=== PATIENT | female | born 1970 | race Caucasian/White ===

== ENCOUNTER 2022-12-24 20:23 | Emergency (ER) | payer OTHER, SELFPAY ==
--- NOTE | ~2022-12-24 | XR_ITS ---
EXAMINATION: XR WRIST, LEFT CLINICAL INFORMATION: Trauma COMPARISON: None available. TECHNIQUE: PA, lateral, and oblique views of the left wrist. FINDINGS: There is comminuted fracture distal radius with dorsal displacement of the wrist. Also visualized is a comminuted fracture distal ulna. There is moderate soft tissue swelling. No additional fracture seen. XR/XR wrist LT min 3V IMPRESSION: Comminuted Colles fracture distal radius. Comminuted fracture distal ulna without displacement. Moderate wrist soft tissue swelling.
[2022-12-24 20:53] VITALS: BP 143/94; PULSE 82; RESP 16; TEMP 37.5; O2SAT 98; BMI 22.6
--- NOTE | 2022-12-24 20:54 | ED.GENADULT ---
HPI - General Adult General Chief complaint: Extremity Injury, Upper Stated complaint: left wrist inj fell Time Seen by Provider: 12/24/22 21:01 Related Data Allergies Allergy/AdvReac Type Severity Reaction Status Date / Time levofloxacin Allergy Severe Anaphylaxis Verified 12/24/22 20:55 [facility] Social History Social History Advance Directives: No Advance Directives Information Provided: Yes Physical Exam ED Vital Signs: BMI result Body Mass Index 22.6 Course Course Course Narrative: 52-year-old female presents for evaluation of left wrist pain after tripping and falling on the wrist. Denies any other injuries. X-rays ordered Medications Administered Discontinued Medications Generic Name Dose Route Start Last Admin Trade Name Freq PRN Reason Stop Dose Admin Oxycodone HCl 5 mg 12/24/22 21:33 12/24/22 21:42 Oxycodone Hcl Immed Release 5 Mg Tablet PO 12/24/22 21:34 5 mg ONCE ONE Administration Discharge Plan Discharge Clinical Impression: Fracture of wrist Patient Disposition: Home, Self-Care Instructions: Wrist Fracture in Adults (ED) Referrals: Po Sanchez MD [Physician] - Interventions: ED Discharge Assessment Last Done: 12/24/22 23:51 Discharge Date/Time: 12/24/22 23:52
--- NOTE | 2022-12-24 21:25 | ED_ITS ---
HPI - Extremity Problem General Chief complaint: Extremity Injury, Upper Stated complaint: left wrist inj fell Time Seen by Provider: 12/24/22 21:01 Source: patient Mode of arrival: ambulatory Limitations: no limitations History of Present Illness HPI Narrative: 52-year-old female right-handed came in for evaluation of left wrist pain after falling and landing on her left hand and left wrist while playing bowling. Related Data Allergies Allergy/AdvReac Type Severity Reaction Status Date / Time levofloxacin Allergy Severe Anaphylaxis Verified 12/24/22 20:55 Review of Systems Review of Systems: All other systems are reviewed and are negative Constitutional: Reports as per HPI and Reports no additional constitutional complaints Eyes: Reports as per HPI and Reports no additional eye complaints Reports system reviewed and no additional complaints, except as documented Cardiovascular: Reports as per HPI and Reports no additional cardiovascular complaints Respiratory: Reports as per HPI and Reports no additional respiratory complaints Gastrointestinal: Reports as per HPI and Reports no additional gastrointestinal complaints Genitourinary: Reports no additional female genitourinary complaints Musculoskeletal: Reports no additional musculoskeletal complaints Skin/Breast: Reports system reviewed and no additional complaints, except as docu Psychiatric: Reports no additional psychiatric complaints Endocrine: Reports no additional endocrine complaints Hematologic/Lymphatic: Reports no additional hematologic/lymphatic complaints Allergic/Immunologic: Reports no additional allergic/immunologic complaints Reports system reviewed and no additional complaints, except as documented and Reports Abnormal speech present [facility] Social History Social History Advance Directives: No Advance Directives Information Provided: Yes Physical Exam Vital Signs: Vital Signs: Last Vital Signs Temp 99.5 F 12/24/22 20:53 Pulse 82 12/24/22 20:53 Resp 16 12/24/22 20:53 BP 143/94 H 12/24/22 20:53 Pulse Ox 98 12/24/22 20:53 O2 Del Method Room Air 12/24/22 20:53 BMI result Body Mass Index 22.6 Vital signs have been reviewed as appeared to be correct. Blood pressure normal. Heart rate normal. Respiration rate normal. Temperature normal. Oxygen saturation normal. Appearance: Alert. Oriented X3. No acute distress. Head: Normal external exam. Normocephalic. Atraumatic. No [place] signs noted. No raccoon eyes noted Eyes: PERRLA. EOMI. Conjunctiva and sclera normal. Eyelids normal. ENT: TM's Normal. Pharynx normal. Uvula midline. Moist mucous membranes. No trismus noted. No drooling noted. No muffled voice noted. Neck: Normal inspection. Neck supple. FROM. No adenopathy. Thyroid Normal. No meningeal signs. No neck mass noted. CVS: Normal heart rate and rhythm. Heart sound normal. No murmurs noted. Pulses normal throughout. Respiratory: No respiratory distress. Painless inspiration. Breath sounds normal. No wheezes/rales/rhonchi noted. Chest nontender. No accessory muscle usage noted or decreased air movement noted. Abdomen: Soft and nontender. Bowel sounds normal in all 4 quadrants. No distention noted. No organomegaly noted. No visible injury noted. Back: No CVA tenderness. Full range of motion noted. Skin: Skin warm and dry. Normal skin color. Normal skin turgor. No rashes/lesions/lacerations noted. Extremities: Left hand and wrist exam: Swelling with deformity, radial pulses intact, cap refill less than 3 seconds. Neuro: Oriented X 3. Cranial nerve exam: II-XII are grossly intact No motor deficit. No sensory deficit. Reflexes normal. Course Course Course Narrative: Comminuted colles fracture of the left radius and ulna. After using hematoma block with 1% lidocaine patient was placed on hand traction for reduction and volar/dorsal spur splint was applied to the left hand and wrist. Medications Administered Discontinued Medications Generic Name Dose Route Start Last Admin Trade Name Freq PRN Reason Stop Dose Admin Oxycodone HCl 5 mg 12/24/22 21:33 12/24/22 21:42 Oxycodone Hcl Immed Release 5 Mg Tablet PO 12/24/22 21:34 5 mg ONCE ONE Administration Medical Decision Making Differential Diagnosis Differential Diagnoses: The differential diagnosis associated with the presentation includes (Left wrist fracture, dislocation, contusion.) Independent Interpretation I performed an independent interpretation of an: Plain X-Ray (Left wrist: Commi nuted distal radius and ulnar fracture.) Radiology Impression Discussion of test interpretation with radiology: I have reviewed the radiologist's reading. Discharge Plan Discharge Clinical Impression: Fracture of wrist Patient Disposition: Home, Self-Care Instructions: Wrist Fracture in Adults (ED) Referrals: Po Sanchez MD [Physician] -
[2022-12-24] MEDS: oxyCODONE HCl Immed Release 5 MG TABLET PO (21:42)
--- NOTE | 2022-12-24 22:06 | PC.NURSE ---
Patient is being put in traction with 10lbs. by [facility] tech per Dr. Keys. Dr. Keys did a nerve block to help her tolerate procedure.
== END 2022-12-24 23:52 | disposition home or self-care (01) ==
PROVIDERS: Emergency Provider Emergency Medicine
DX: S52.532A Colles' fracture of left radius, initial encounter for closed fracture (principal); S52.602A Unspecified fracture of lower end of left ulna, initial encounter for closed fracture; X50.1XXA Overexertion from prolonged static or awkward postures, initial encounter; Y93.54 Activity, bowling; Y92.39 Other specified sports and athletic area as the place of occurrence of the external cause; Y99.9 Unspecified external cause status
CPT/HCPCS: 25605; 73110; 99283